=== PATIENT | male | born 1970 | race Caucasian/White ===

== ENCOUNTER 2018-03-23 06:54 | Emergency (ER) | payer OTHER ==
[~2018-03-23] VITALS: Ht 195.6 cm; Wt 113.4 kg
[2018-03-23 06:55] VITALS: BP 170/98
--- NOTE | 2018-03-23 06:59 | NUR ---
TO BED # 12 AMBULATORY.
--- NOTE | 2018-03-23 07:05 | NUR ---
REPORT GIVEN TO WILIAM MONGE.
--- NOTE | 2018-03-23 07:11 | NUR ---
PT COMES TO ER WITH C/O GENERALIZED BODY RASH FOR COUPLE OF WEEKS, PRURITIS, DENIES PAIN. REPORTS HE WORKS WITH [employer] AND [employer]. DENIES FEVERS/CHILLS. RESP EVEN AND UNLABORED, IN NAD. RASH NOTED-RED CIRCULAR IN SHAPE. NO DRAINAGE NOTED. MED HX; NONE MEDS: NONE
[2018-03-23 07:55] VITALS: BP 152/76
--- NOTE | 2018-03-23 07:59 | NUR ---
Patient discharged with v/s stable. Written and verbal after care instructions given and explained. Patient alert, oriented and verbalized understanding of instructions. Ambulatory with steady gait. All questions addressed prior to discharge. ID band removed. Patient advised to follow up with PMD. Rx of ALBENZA,TRIAMCINOLONE,PREDNISONE given. Patient educated on indication of medication including possible reaction and side effects. Opportunity to ask questions provided and answered.
== END 2018-03-23 07:59 | disposition home or self-care (01) ==
LOC: MED 06:54
DX: S30.861A Insect bite (nonvenomous) of abdominal wall, initial encounter (principal); S40.862A Insect bite (nonvenomous) of left upper arm, initial encounter; S40.861A Insect bite (nonvenomous) of right upper arm, initial encounter; B80 Enterobiasis; W57.XXXA Bitten or stung by nonvenomous insect and other nonvenomous arthropods, initial encounter; Y93.89 Activity, other specified; Y92.89 Other specified places as the place of occurrence of the external cause; Y99.8 Other external cause status; E11.9 Type 2 diabetes mellitus without complications; Z88.1 Allergy status to other antibiotic agents
CPT/HCPCS: 82948; 99283

== ENCOUNTER 2018-03-30 23:10 | Emergency (ER) | payer OTHER ==
[~2018-03-30] VITALS: Ht 195.6 cm; Wt 113.4 kg
[2018-03-30 23:36] VITALS: BP 155/100
--- NOTE | 2018-03-30 23:45 | NUR ---
PT SENT TO MYRTLE, JFS, EVEN STEADY GAIT.
--- NOTE | 2018-03-30 23:59 | NUR ---
PT TAKEN TO BED 12
--- NOTE | 2018-03-31 00:05 | NUR ---
PATIENT C/O WORMS COMING OUT OF HIS RECTUM AND R UPPER AND LOWER QUADRANT ABD PAIN RADIATING TO HIS BACK 7/10 PRESSURE STARTING TODAY. PATIENT STATES 2 DAYS AGO HE HAD 1 EPISODE OF DIARRHEA WITH WORMS WHICH HE WAS TREATED FOR. PATIENT IS ALERT AND ORIENTED IN NO ACUTE DISTRESS, WILL CONTINUE TO MONITOR CLOSELY.
[2018-03-31] MEDS ORDERED: LORazepam 1 MG TAB PO ONE (00:55)
--- NOTE | 2018-03-31 01:15 | NUR ---
PATIENT IS RESTING AT THIS TIME.
[2018-03-31 01:24] LABS: BARBITURATE, URINE NEG. ng/ml (NEG <=200); BENZODIAZEPINE, URINE NEG. ng/mL (NEG <=200); CANNABINOID, URINE NEG. ng/mL (NEG <=50); COCAINE, URINE NEG. ng/mL (NEG <=300); OPIATE, URINE NEG. ng/mL (NEG <=2000); PHENCYCLIDINE SCREEN,URINE NEG. ng/mL (NEG <=25)
[2018-03-31 02:30] VITALS: BP 145/97
--- NOTE | 2018-03-31 02:30 | NUR ---
PATIENT REFUSED TO SIGN. Patient discharged with v/s stable. Written and verbal after care instructions given and explained. Patient alert, oriented and verbalized understanding of instructions. Ambulatory with steady gait. All questions addressed prior to discharge. ID band removed. Patient advised to follow up with PMD. Rx of ELIMITE 5% AND ATIVAN 2MG given. Patient educated on indication of medication including possible reaction and side effects. Opportunity to ask questions provided and answered.
== END 2018-03-31 02:30 | disposition home or self-care (01) ==
LOC: MED 23:10
DX: L29.9 Pruritus, unspecified (principal); Z88.1 Allergy status to other antibiotic agents
CPT/HCPCS: 80305; 99283